=== PATIENT | male | born 1960 | race Caucasian/White ===

== ENCOUNTER 2021-11-20 12:06 | Observation (INO) | payer MEDICARE, OTHER ==
[~2021-11-20] VITALS: Ht 167.6 cm; Wt 67.0 kg
[~2021-11-20 12:06] MED LIST: AMARYL4 MG PO; BENZTROPINE MESY2 MG PO; ELIQUIS5 MG PO; GEMFIBROZIL600 MG PO; JANUVIA50 MG PO; LIPITOR40 MG PO; LISINOPRIL-HCT1 EACH PO; LORAZEPAM1 MG PO; METFORMIN HCL500 MG PO; NORVASC5 MG PO; PAROXETINE HCL20 MG PO; PERPHENAZINE8 MG PO; TOPROL XL50 MG PO
[2021-11-20] MEDS ORDERED: DILTIAZEM 24HR240 M1 PO ×2 (12:55→12:56)
[2021-11-20] MEDS ORDERED: FLOMAX0.4 MG PO (12:56)
[2021-11-20] MEDS ORDERED: LASIX20 MG PO (12:57)
[2021-11-20] MEDS ORDERED: PROSCAR5 MG PO (12:57)
[2021-11-20] MEDS ORDERED: OMEPRAZOLE20 MG PO (13:00)
[2021-11-20] MEDS ORDERED: ZYPREXA5 MG (13:01)
[2021-11-20] MEDS ORDERED: ZYPREXA5 MG PO (13:03)
[2021-11-20] MEDS ORDERED: TRAZODONE HCL50 MG PO (13:03)
[2021-11-20] MEDS ORDERED: MELATONIN3 MG PO (13:03)
--- NOTE | 2021-11-20 15:34 | NUR ---
REPORT RECEIVED FROM ROYER GIL. AWAITING PTS ARRIVAL TO MED/SURG.
--- NOTE | 2021-11-20 15:57 | NUR ---
PT ARRIVED FROM ER, PT TRANSFERS SELF TO BED WITH STAND BY ASSIST. FAMILY REPORTS "HEART ISSUES" ARE NEW FOR PT "IN THE LAST FEW MONTHS." PT DENIES PAIN AND NAUSEA. PT COOPERATIVE WITH CARES AND PLEASENT WITH INTERACTIONS. OXGYEN SATURATION NOTED TO BE 88%. OXGYEN INCREASED TO 8L O2 BY NC. CPOX IN PLACE. PT DENEIS RECENT COUGH. LUNG SOUNDS CLEAR IN UPPER LOBES WITH CRACKELS NOTED IN BASES. PT OREINTED TO DATE, EVENTS AND SURROUNDINGS BUT UNSURE OF WHAT TOWN HE IS IN. PT IS ABLE TO STATE WHERE HE LIVES AND OTHERWISE ANSWER QUESTIONS APPROPRIATLY. HEART TONES IRREGULAR PER PTS BASELINE. HEART RATE 70-80'S. +1 PITTING EDEMA NOTED IN BLE. PT AND PTS SISTER REPORT HIS ABDOMEN "IS SWOLLEN." BOWEL TONES HEARD. ABDOMEN SOFT AND NON TENDER. PT UNABLE TO CLARIFY WHEN LAST BOWEL MOVEMENT OCCURED. SMALL OLD SCRATCH NOTED TO RIGHT INDEX FINGER. PT ORIENTED TO ROOM AND USE OF CALL LIGHT. PT VERBALIZES UNDERSTANDING. PT WATCHING TV. HEAD OF BED ELEVATED TO 20 DEGREES. BED ALARM ON. CALL LIGHT WITHIN REACH.
--- NOTE | 2021-11-20 17:07 | NUR ---
Spoke with pt and sister. Pt is very polite. He does not use any DmE. He resides at [facility] in [place]. May need 02 on dc [facility]. Sister states he was breathing rapidly today when she picked him up for 's appt in [place]. Was sent to the ER from s visit. She denies needs for further services or DME. Pt has intermediate manager medicade for placement to [facility]. Pt also has a mental health diagnosis. Sister would like him to return there on dc.
--- NOTE | 2021-11-20 17:26 | NUR ---
DINNER ARRIVED. THIS RN TO ROOM TO CHECK ON PT. PT UP TO VOID IN URINA. VOIDS 900ML CLEAR YELLOW URINE. STAND BY ASSIST UP TO CHAIR FOR DINNER. INSULIN GIVEN. PT TOLERATING 8L O2 BY NC WITH OXGYEN SATURATION OF 93%. PT DENIES ADDITIONAL REQUESTS OR COMPLAINTS. CALL LIGHT WITHIN REACH.
--- NOTE | 2021-11-20 18:23 | NUR ---
THIS RN TO ROOM TO CHECK ON PT. PT REMAINS UP TO CHAIR. FINISHED WITH DINNER. PT DENIES FEELINGS OF SHORTNESS OF BREATH. PT REMAINS ON 8L O2 BY NC WITH OXGYEN SATURATION OF 93-94%. PT DENIES PAIN AND NAUSEA. PT DENIES ADDITIONAL REQUESTS OR COMPLAINTS. CALL LIGHT WITHIN REACH.
--- NOTE | 2021-11-20 19:05 | NUR ---
report from Alyssa drake, pt up in with call light in reach - denies needs, wants to stay in , 02 90% on 8l nc. cpox on.
--- NOTE | 2021-11-20 21:00 | NUR ---
pt continues to be up in , watching tv with call light in reach, vitals, i/o complete - po meds with fresh water from rn, denies needs.
--- NOTE | 2021-11-20 22:31 | NUR ---
PT ROOM CHECK = PT UP IN DENIES NEEDS. CALL LIGHT IN REACH
--- NOTE | 2021-11-21 01:23 | NUR ---
pt amb with rn to bathroom to void - lg amt missed hat, back to bed
--- NOTE | 2021-11-21 05:43 | NUR ---
IN FOR VITALS WHILE LAB WAS IN FOR DRAW, PT DENIES NEEDS - 02 8 LNC. PT DENIES NEEDS.
--- NOTE | 2021-11-21 07:10 | EKG ---
[facility] [address] [place] [address] Signed Atrial fibrillation Incomplete right bundle branch block Septal infarct , age undetermined Abnormal ECG When compared with ECG of 05-MAR-2019 12:04, Incomplete right bundle branch block is now present Confirmed by LANCE SOUSA MD ([id number]) on 11/21/2021 7:10:40 AM Electronically Signed By: LANCE SOUSA MD 11/21/21 0710 PATIENT NAME: LASHONDA MATSON RICARDO Electrocardiogram DATE OF : 62 PHYSICIAN: LANCE SOUSA MD REPORT #: [id number] REPORT IS CONFIDENTIAL AND NOT TO BE RELEASED WITHOUT AUTHORIZATION
--- NOTE | 2021-11-21 07:52 | NUR ---
THIS RN TO ROOM TO ASSIST WITH MORNING CARES. PT RESTING WITH EYES CLOSED. PT AWAKENS TO MOVEMENT IN THE ROOM. BLOOD SUGAR TAKEN. STAND BY ASSIST UP TO USE URINAL. PT VOIDS 1100ML CLEAR YELLOW URINE. STAND BY ASSIST UP TO CHAIR. WARM BLANKET PROVIDED. PT WASHES FACE INDEPENDANTLY WITH WARM WASH CLOTH. NO ADDIITONAL REQUESTS OR COMPLAINTS. CALL LIGHT WITHIN REACH.
[2021-11-21] MEDS ORDERED: FEROSUL325 MG PO (08:37)
[2021-11-21] MEDS ORDERED: METFORMIN HCL1000 MG PO (08:40)
--- NOTE | 2021-11-21 08:58 | NUR ---
pt up in chair eating, coop with assessment. on 6L high flow O2, lungs dim at bases, no cough noted at this time. pleasant alert to name , all procedures explained. IV SL patent. L hand. legs elevated, call light and fluids at hands reach
--- NOTE | 2021-11-21 09:54 | NUR ---
PT CALL LIGHT ON. PT REQUESTS ASSISTANCE WITH USING URINAL. STAND BY ASSIST UP TO STAND AND USE URINAL. PT VOIDS ADDITIONAL 900ML CLEAR YELLOW URINE. OXYGEN SATURATION 96-98% ON 6L O2 BY NC. PT WEANED TO 4L O2 BY NC WITH OXYGEN SATURATIONS MAINTINING ABOVE 94%. PT REMAINS UP TO CHAIR. CALL LIGHT WITHIN REACH. NO ADDITIONAL REQUESTS OR COMPLAINTS.
[2021-11-21] MEDS ORDERED: BENZTROPINE MESY1 MG PO (10:33)
[2021-11-21] MEDS ORDERED: OMEPRAZOLE40 MG PO (10:36)
--- NOTE | 2021-11-21 10:52 | NUR ---
Pt in chair, used urinal, comfortable, eyes closed, O2 has been weaned down to 4LNC per Rt, no sob, call light and fluids at hands reach, legs elevated
--- NOTE | 2021-11-21 12:43 | NUR ---
pt in chair, high flow O2 4L NC, not chronic, legs dependent at this time, eating lunch, cbg 201 received 3 units ss insulin, cooperative. pleasnt, call light and fresh fluids at bedside
--- NOTE | 2021-11-21 13:31 | NUR ---
awake, coop, pleasnt, forgetful. on 4lnc high flow o2. cpox at bedside, sats 96%, r 22, slight sob with exertion noted, up to void large amount of clear yellow urine, back to bed sba/1pa, tolerated well. watching tv, denies CP, tele#[address] afib rhtyhm. call light and fluids at bedside.
--- NOTE | 2021-11-21 13:45 | NUR ---
O2 HIGH FLOW, DECREAED TO 3LNC, CPOX AT BEDSIDE
--- NOTE | 2021-11-21 14:35 | NUR ---
updates on pt given to sister Tenisha, Pt resting, O2 3LNC high flow, cpox at bedside sats 90-91%. no distress, eyes closed. call light at hands reach, hb and feet elevated to comfort
--- NOTE | 2021-11-21 14:58 | NUR ---
MED REC COMPLETE
--- NOTE | 2021-11-21 15:19 | NUR ---
PT TOOK O2 TUBING OFF, DESATTED TO 83% ONROOM AIR, PT BACK ON 4LNC HIGH FLOW O2, CPOX AT BEDSIDE, SATS 90-92% ON 4L
--- NOTE | 2021-11-21 16:10 | NUR ---
Pt on 4L high flow O2NC, lungs dim at bases fine crackles left side, no cough noted this shift. slight sob noted with exertion. took O2 off when in bed, desatted to 83% on room air. had been weaned off to 3L O2 earlier, and was raised up to 4L after that. cpox at bedside, sats 90-92% on 4L at this time. SBA, on Lasix IV, voiding large amounts of clear yellow urine. received ss Insulin with accuchecks. Feeds self, forgetful, easily redirectable, pleasant, cooperative. follows instructions. Was up in chair for meals, eats very well, Fluids and call light at hands reach.
--- NOTE | 2021-11-21 16:26 | NUR ---
No change in plan for dc.
--- NOTE | 2021-11-21 16:49 | NUR ---
cbg 213 will give ss insulin, on 4LNC, cpox at bedside, sats 93%, tele#[address] Echevarria orders. Pt voided, up to chair for meals, no c/o CP or sob with exertion.
--- NOTE | 2021-11-21 19:30 | NUR ---
bedside report from michael rn, pt up in ch and denies needs, call light in reach.
--- NOTE | 2021-11-21 21:47 | NUR ---
assessment complete - pt very pleasant, denies needs, call light in reach. [id number] 1 unit insulin given. pulse ox on wnl 1 l nc.
--- NOTE | 2021-11-21 22:30 | NUR ---
ASSISTED PT TO THE TOILET, VOIDED, PT LIKES TO REMAIN IN THE CHAIR, NO FURTHER NEEDS AT THIS TIME
--- NOTE | 2021-11-22 00:42 | NUR ---
pt up in ch, eyes closed - call light in reach, resp even.
--- NOTE | 2021-11-22 03:35 | NUR ---
no changes, pt even resp, eyes closed in ch with call light in reach.
--- NOTE | 2021-11-22 04:06 | NUR ---
PT AMB TO BR TO VOID QS - TOLLERATED EXERTION WELL - BACK TO BED, NEW GOWN ON, VITALS AND I/O COMPLETE AND WNL.
--- NOTE | 2021-11-22 07:30 | NUR ---
REPORT RECEIVED FROM NIGHT RN - PT RESTING IN BED, RR EVEN AND UNLABORED. CALL LIGHT AT SIDE.
--- NOTE | 2021-11-22 08:16 | NUR ---
BLOOD SUGAR CHECKED. PT ASSISTED UP TO CHAIR FOR BREAKFAST. 1L NC IN PLACE. WATER REFRESHED. CALL LIGHT IN REACH.
--- NOTE | 2021-11-22 09:21 | NUR ---
RN IN ROOM TO ADMINISTER SCHEDULED MEDICATIONS, PT UP IN CHAIR WATCHING TV. PT DENIES NEEDS AT THIS TIME, HAS NO COMPLAINTS. IV SITE FLUSHES WITHOUT DIFFICULTY. PT NEEDING REMINDERS TO WEAR OXYGEN NC. CURRENTLY AT 1L. RT IN ROOM. CALL LIGHT IN REACH.
--- NOTE | 2021-11-22 09:30 | NUR ---
Per [address] Echevarria, pt will dc today. 02 qualifier ordered.
--- NOTE | 2021-11-22 10:45 | NUR ---
RN IN ROOM TO ASSESS PT - PT UP IN CHAIR WATCHING TV UPON ENTRY. PT IN GOOD MOOD, EXCITED TO GO HOME. SAYS HE IS HAVING A "GREAT DAY!". 1.5 L O2 VIA NC IN PLACE, SPO2 97%. QUALIFIES FOR HOME 02, WILL WORK WITH BACTERIOLOGIST DAIRY FOR DC BACK TO FACILITY. PT DENIES FURTHER NEEDS AT THIS TIME. CALL LIGHT IN REACH.
--- NOTE | 2021-11-22 11:00 | NUR ---
Received orders, rx, 02 qualifier and faxed to [facility] in [place], [place] as the cover the [place] and pt has used in the past. Called sister and notified pt will be discharged today. has requested pt not use salt when eating. Sister states she will arrive in the next 1-2 hrs to pick him up. Updated auditor in charge, pt will need to use a [employer] tank when he discharges. Notifed Surya in ran I am sending their tank to [place].
--- NOTE | 2021-11-22 11:14 | NUR ---
PT RESTING IN BED, AWAKENS EASILY, DENIES NEEDS AT THIS TIME. CALL LIZANDRO CISNEROS.
--- NOTE | 2021-11-22 12:10 | NUR ---
REPORT CALLED TO ROSALIND BUTT
--- NOTE | 2021-11-22 12:32 | NUR ---
RN IN ROOM TO ADMINISTER LUNCH TIME INSULIN - PT UP IN CHAIR EATING LUNCH. DENIES NEEDS AT THIS TIME. SALT INTAKE EDUCATION REINFORCED.
== END 2021-11-22 13:55 | disposition home or self-care (01) ==
LOC: ED 12:06 → MS 12:08
PROVIDERS: ADMIT Internal Medicine; ATTEND Internal Medicine
DX: J96.01 Acute respiratory failure with hypoxia (principal); E11.9 Type 2 diabetes mellitus without complications; G47.33 Obstructive sleep apnea (adult) (pediatric); I11.0 Hypertensive heart disease with heart failure; I50.33 Acute on chronic diastolic (congestive) heart failure; F25.9 Schizoaffective disorder, unspecified; I48.91 Unspecified atrial fibrillation; Z90.49 Acquired absence of other specified parts of digestive tract; Z79.84 Long term (current) use of oral hypoglycemic drugs; Z79.01 Long term (current) use of anticoagulants; Z20.822 Contact with and (suspected) exposure to COVID-19; Z86.16 Personal history of COVID-19
CPT/HCPCS: 36415; 71045; 80048; 80053; 83880; 85025; 87502; 93005; 93010; 94761; 94762; 96374; 96376; 99285-25; A9270; C9803; G0378; J1815; J1940; Q0175; U0003